=== PATIENT | female | born 1935 | race Caucasian/White ===

== ENCOUNTER → 2016-12-15 | Outpatient (CLI) | payer OTHER, MEDICARE ==
[~2016-12-15] MED LIST: ASPIRIN EC81 M1 PO; IMDUR 30 MG TAB30 M1 PO; LOPRESSOR50 PO
--- NOTE | ~2016-12-15 | 2DMMODE ---
[facility] [place] [place] [address] 2 D/M-MODE ECHOCARDIOGRAM Name: BENJAMINBELINDA GALVIN Room #: REG [facility]#: [id number] Admission: 12/15/16 Attend Phys: Sloan Cameron MD Discharge: Date of : 39 Date of Service: 12/15/16 1413 Report #: [id number] THIS REPORT FOR: //name// APPROVED REPORT Study performed: 12/15/2016 12:26:04 EXAM: Comprehensive 2D, Doppler, and color-flow Echocardiogram Patient Location: Out-Patient Blood Pressure: 143/88 mmHg HR: 72 bpm Rhythm: NSR Other Information Study Quality: Adequate Indications Mitral regurgitation. Hx: SVT, CAD, HTN, HLP 2D Dimensions RVDd: 36.78 mm LVEF(%): 65.62 (>50%) IVSd: 10.46 (7-11mm) LVOT Diam: 18.87 (18-24mm) LVDd: 43.19 mm PWd: 9.51 (7-11mm) Ascending Aorta: 31.61 mm LVDs: 27.73 (25-40mm) Aortic Root: 30.31 mm Gutierrez's LVEF: 65.62 % Volumes Left Atrial Volume (Systole) Single Plane 4CH: 75.74 mL Single Plane 2CH: 54.67 mL LA ESV Index: 38.00 mL/m2 Aortic Valve AoV Peak Franklin.: 1.39 m/s AO Peak Gr.: 7.72 mmHg LV Max P.88 mmHg LV Max: 1.49 m/s Mitral Valve MV PHT: 103.28 ms MV E Max Franklin.: 0.60 m/s E/A Ratio: 0.7 MV A Franklin.: 0.89 m/s MV Decel. Time: 356.14 ms [facility] [place] [address] 2 D/M-MODE ECHOCARDIOGRAM Name: BELINDA ALEXANDER Room #: REG [facility].#: [id number] Admission: 12/15/16 Attend Phys: Sloan Cameron MD Discharge: Date of : 39 Date of Service: 12/15/16 1413 Report #: [id number] Pulmonary Valve PV Peak Franklin.: 0.91 m/s PV Peak Gr.: 3.31 mmHg Tricuspid Valve TR Peak Franklin.: 1.94 m/s RAP Estimate: 5.00 mmHg TR Peak Gr.: 15.00 mmHg RVSP: 20.00 mmHg Left Ventricle The left ventricle is normal size. There is normal LV segmental wall motion. There is normal left ventricular wall thickness. Left ventricular systolic function is normal. LVEF is 60-65%. Grade I - abnormal relaxation pattern. Right Ventricle The right ventricle is normal size. The right ventricular systolic function is normal. Atria Left atrium is moderately dilated. The right atrium size is normal. Aortic Valve Aortic valve is thickened. Trace aortic regurgitation. There is no aortic valvular stenosis. Mitral Valve Mitral valve leaflets are mildly thickened. Mild to moderate mitral regurgitation. Mild bi-leaflet mitral valve prolapse. Tricuspid Valve The tricuspid valve is normal in structure. There is mild tricuspid regurgitation. The right atrial pressure is estimated at 5 mmHg. Estimated PAP is 20mmHg. Pulmonic Valve Trace pulmonic regurgitation. Great Vessels The aortic root is normal in size. The ascending aorta is normal in size. IVC is normal in size and collapses >50% with inspiration. Pericardium There is no pericardial effusion. [facility] [address] [place] [address] 2 D/M-MODE ECHOCARDIOGRAM Name: BELINDA ALEXANDER Room #: REG [facility]#: [id number] Admission: 12/15/16 Attend Phys: Sloan Cameron MD Discharge: Date of : 39 Date of Service: 12/15/16 1413 Report #: [id number] <Conclusion> The left ventricle is normal size. Left ventricular systolic function is normal. The right ventricle is normal size. Left atrium is moderately dilated. There is no aortic valvular stenosis. Mild to moderate mitral regurgitation. There is no pericardial effusion. <ELECTRONICALLY SIGNED> By: Sloan Cameron MD 12/15/16 1413 141 1413 Sloan Cameron MD /TSERING
== END ==
LOC: CV 11:05
DX: I34.0 Nonrheumatic mitral (valve) insufficiency (principal); I47.1 Supraventricular tachycardia; I25.10 Atherosclerotic heart disease of native coronary artery without angina pectoris; I10 Essential (primary) hypertension; E78.5 Hyperlipidemia, unspecified

== ENCOUNTER → 2018-06-18 | Outpatient (CLI) | payer OTHER, MEDICARE | LOC: NUC 10:39 | DX: I05.9 Rheumatic mitral valve disease, unspecified (principal); I47.1 Supraventricular tachycardia; I10 Essential (primary) hypertension ==

== ENCOUNTER 2018-07-09 09:09 | Emergency (ER) | payer OTHER, MEDICARE ==
[~2018-07-09] VITALS: Ht 170.2 cm; Wt 81.7 kg
[2018-07-09] MEDS ORDERED: SENNA-DOCUSATE1 EACH PO (09:58)
== END 2018-07-09 10:14 | disposition home or self-care (01) ==
LOC: ER 09:09
DX: K59.00 Constipation, unspecified (principal); I10 Essential (primary) hypertension; Z88.0 Allergy status to penicillin